=== PATIENT | male | born 1965 | race Caucasian/White ===

== ENCOUNTER → 2016-10-24 | Outpatient (CLI) | payer OTHER ==
[~2016-10-24] MED LIST: ASPIRIN325 PO; ATORVASTATIN CA40 MG PO; COZAAR 50 MG TA50 M1 PO; HYDROCODONE-ACE15 ML PO; METOPROLOL SUCC50 MG PO; NOHOMEMEDICATIONS; NORVASC2.5 MG PO; NORVASC5 MG PO; PACERONE 200 M200 M1 PO; PROTONIX40 MG PO
--- NOTE | ~2016-10-24 | EEG ---
[facility] [place] [address] ELECTROENCEPHALOGRAM Name: JACKTHIFREDRICK Room #: REG [facility]#: [id number] Admission: 10/24/16 Attend Phys: Kalpesh Freire MD Discharge: Date of : 67 Report #: [id number] THIS REPORT FOR: //name// CC: Fani Freire DATE OF SERVICE: 10/24/2016 This patient is being evaluated for episodic symptoms. EEG was done by placing the electrodes by standard 10-20 system of electrode placement. Both referential and sequential montages were used for recording. Background activity in this patient's EEG is about 11 Hz and 40 microvolt. The patient goes to sleep that is associated with bilaterally symmetrical slowing and vertex sharp waves on both sides. Photic stimulation was unremarkable. Throughout the record, no active epileptiform activity was noticed. IMPRESSION: This patient's EEG is within normal limits. Thank you very much for this referral. <ELECTRONICALLY SIGNED> By: Kalpesh Freire MD 10/25/164 1923 07 Kalpesh Freire MD /nt
== END ==
LOC: NEURO 10:37
DX: G45.9 Transient cerebral ischemic attack, unspecified (principal)

== ENCOUNTER → 2016-10-31 | Outpatient (CLI) | payer OTHER ==
--- NOTE | ~2016-10-31 | 2DMMODE ---
[facility] [place] [address] 2 D/M-MODE ECHOCARDIOGRAM Name: VALERIANOMARENREINA Hernandez Room #: REG [facility]#: [id number] Admission: 10/31/16 Attend Phys: Markel Sheth MD Discharge: Date of : 67 Date of Service: 10/31/16 1312 Report #: [id number] THIS REPORT FOR: //name// Transthoracic Echocardiography Ordering physician: Markel Sheth MD Referring physician: Markel Sheth MD Asset Protection Agent: Indications/History: CAD. Hx: CABG 2016, HTN, HLP BP: 125 / HR: 71bpm Height: 72in Weight: 199.6lb 90 Study data: M-mode, complete 2D, complete spectral Doppler, and color Doppler. Location: Echo laboratory. Routine. Image quality was adequate. 2D measurements Normal Normal LVID ED 47.3mm 36-57 IVS ED 10mm 6-11 LVID ES 29.5mm 23-40 LVPW ED 9.4mm 6-11 LA volume 21ml/m2 16-28 AoRoot diam 36.6mm 21-37 index ED LVOT diameter 22mm 18-23 Findings: Left ventricle: The cavity size was normal. Wall thickness was normal. Systolic function was normal. The estimated ejection fraction was in the range of 55% to 60%. Wall motion was normal. Right ventricle: The cavity size was normal. Systolic function was low normal. Right atrium: The atrium was normal in size. Left atrium: The atrium was normal in size. Volume index: 21ml/m2 (S). Aortic valve: Structurally normal valve. Doppler: There was no stenosis. No regurgitation. Peak velocity: 132.7cm/s (S). [address] [address] 2 D/M-MODE ECHOCARDIOGRAM Name: FREDRICK BAL Room #: REG [facility]#: [id number] Admission: 10/31/16 Attend Phys: Markel Sheth MD Discharge: Date of : 67 Date of Service: 10/31/16 1312 Report #: [id number] Mitral valve: Structurally normal valve. Doppler: There was no evidence for stenosis. Trivial regurgitation. Peak E-wave velocity: 54.4cm/s. Peak A-wave velocity: 61.4cm/s. Tricuspid valve: Structurally normal valve. Doppler: There was no evidence for stenosis. Mild regurgitation. Regurgitant peak velocity: 244cm/s. Peak RV-RA gradient: 24mm Hg (S). Pulmonic valve: Structurally normal valve. Doppler: There was no evidence for stenosis. Trivial regurgitation. Pericardium: There was no pericardial effusion. Aorta: Aortic root: The aortic root was normal in size. Pulmonary artery: Systolic pressure was estimated to be 29mm Hg. Diastolic function: Doppler parameters are consistent with abnormal left ventricular relaxation (grade 1 diastolic dysfunction). Systemic veins: Inferior vena cava: The vessel was normal in size; the respirophasic diameter changes were in the normal range (= 50%). Conclusions 1. Left ventricle: The cavity size was normal. Wall thickness was normal. Systolic function was normal. The estimated ejection fraction was in the range of 55% to 60%. 2. Right atrium: The atrium was normal in size. 3. Left atrium: The atrium was normal in size. 4. Aortic valve: There was no stenosis. 5. Mitral valve: Trivial regurgitation. 6. Tricuspid valve: Mild regurgitation. 7. Pericardium, extracardiac: There was no pericardial effusion. <ELECTRONICALLY SIGNED> By: Markel Sheth MD 10/31/16 1400 1312 1400 Markel Sheth MD /iraj
== END ==
LOC: CV 07:45
DX: I25.10 Atherosclerotic heart disease of native coronary artery without angina pectoris (principal); I10 Essential (primary) hypertension; E78.5 Hyperlipidemia, unspecified; Z95.1 Presence of aortocoronary bypass graft

== ENCOUNTER → 2016-11-04 | Outpatient (CLI) | payer OTHER | LOC: MRI 10-30 08:05 | DX: G45.9 Transient cerebral ischemic attack, unspecified (principal); G62.9 Polyneuropathy, unspecified ==

== ENCOUNTER → 2016-11-08 | Outpatient (CLI) | payer OTHER ==
[2016-11-08 14:08] LABS: CREATININE 1.3 mg/dL (0.6-1.3); POTASSIUM 4.1 mmol/L (3.5-5.1)
[2016-11-08 14:15] LABS: ALBUMIN 4.3 g/dL (3.4-5.0); TOTAL BILIRUBIN 0.8 mg/dL (<0.1-1.0); TOTAL PROTEIN 8.1 g/dL (6.4-8.2)
== END ==
LOC: CAT 13:29
PROVIDERS: Psychiatry & Neurology Neuromuscular Medicine
DX: G45.9 Transient cerebral ischemic attack, unspecified (principal); I77.1 Stricture of artery

== ENCOUNTER 2018-12-14 16:58 | Emergency (ER) | payer OTHER ==
[~2018-12-14] VITALS: Ht 180.3 cm; Wt 92.5 kg
[2018-12-14 17:57] LABS: ABSOLUTE NEUTROPHILS 8.9 thou/uL (1.4-8.2); BASOPHILS 0.8 % (0.0-2.0); EOSINOPHILS 0.1 % (0.0-3.0); MCH 31.4 pg (26.0-34.0); MCHC 35.5 g/dL (28.0-37.0); MCV 88.6 fL (80.0-100.0); MONOCYTES 5.2 % (1.0-8.0); POLYS 84.9 % (36.0-66.0); RBC 5.08 mil/uL (4.50-6.00); RDW 13.5 % (10.5-14.5); WBC 10.5 thou/uL (4.0-11.0)
[2018-12-14 18:01] LABS: ANION GAP 9 mmol/L (7-16); BUN 15 mg/dL (7-18); CALCIUM 9.4 mg/dL (8.5-10.1); CHLORIDE 99 mmol/L (98-107); CO2 27 mmol/L (21-32); CREATININE 1.1 mg/dL (0.7-1.3); GLUCOSE 131 mg/dL (74-106); POTASSIUM 4.1 mmol/L (3.5-5.1); SODIUM 135 mmol/L (136-145)
[2018-12-14 18:09] LABS: TROPONIN-I <0.06 ng/mL (<0.06)
[2018-12-14 18:36] LABS: PLATELET COUNT 172 thou/uL (150-400)
[2018-12-14] MEDS ORDERED: ASPIR 8181 MG PO (20:41)
[2018-12-14] MEDS ORDERED: VISTARIL 25 MG25 M1 PO (21:14)
[2018-12-14 21:50] VITALS: BP 130/79
--- NOTE | 2018-12-15 07:52 | EKG ---
[address] [address] ELECTROCARDIOGRAM REPORT Name: FREDRICK BAL Room #: [facility]#: [id number] ������������������ Admission: 12/14/18 ������������������ Attend Phys: Discharge: 12/14/18 ������������������ Date of : 67 Report #: [id number] ����������������������������������������������������������������� [id number] THIS REPORT FOR: //name// [facility] ED Test Date: 2018-12-14 Test Time: 17:54:59 Pat Name: UGONEHA BAL Department: Room: Gender: M Heel Seat Laster: EDDIE : 1965 Requested By: Krzysztof Estevez Order Number: [id number] MD: Paul Bryan Measurements Intervals Theodore Rate: 84 P: 20 NC: 180 QRS: 19 QRSD: 82 T: 60 QT: 349 QTc: 413 Interpretive Statements Sinus rhythm Borderline low voltage, extremity leads Baseline wander in lead(s) V4,V5,V6 Compared to ECG 06/25/2016 07:29:08 ST (T wave) deviation no longer present Electronically Signed On 12-15-2018 7:52:23 [employer] by Paul Bryan [email or web address] ��������������������������������������������� <ELECTRONICALLY SIGNED> ���������������������������������������� By: Paul Bryan MD, [facility] ��������������������������������������������� 12/15/18 0752 1754 1754 Paul Bryan MD, [facility] /EPI
== END 2018-12-14 21:50 | disposition home or self-care (01) ==
LOC: ER 16:58
PROVIDERS: Nurse Practitioner
DX: R07.89 Other chest pain (principal); R20.0 Anesthesia of skin; R20.2 Paresthesia of skin; I10 Essential (primary) hypertension; F17.210 Nicotine dependence, cigarettes, uncomplicated; Z88.0 Allergy status to penicillin; Z88.1 Allergy status to other antibiotic agents